=== PATIENT | female | born 1990 | race Two or more races ===

== ENCOUNTER → 2016-09-30 | Outpatient (REF) | payer OTHER ==
[~2016-09-30] MED LIST: VICO5TAB16 PO
== END ==
LOC: M SMT 16:55
PROVIDERS: ATTEND Nurse Practitioner Women's Health
DX: R10.9 Unspecified abdominal pain (principal)

== ENCOUNTER → 2016-10-03 | Outpatient (CLI) | payer OTHER ==
--- NOTE | 2016-10-04 05:56 | REP ---
Clinical: Flank pain. History of nephrolithiasis. Comparison: 04/03/2016. Findings: Lung bases are clear. Visualized heart and pericardium normal. Liver, spleen, pancreas, gallbladder, and bilateral adrenal glands are normal for noncontrast evaluation. Kidneys demonstrate bilateral punctate nephroliths up to 2 mm without perinephric stranding, hydroureteronephrosis, or obstructing ureteral calculi. The enteric system is without obstruction or acute inflammatory process. Pelvis demonstrates collapsed bladder and age-appropriate uterus/adnexa. No pelvic fluid or ascites. No free air. Musculoskeletal structures are intact. Impression: 1. Punctate bilateral nephroliths up to 2 mm without perinephric stranding, hydroureteronephrosis or obstructing ureteral calculus. 2. No further acute intra-abdominal or pelvic pathology appreciated. Signed by Osman Chua MD 10/04/2016 05:48 A
== END ==
LOC: M RAD 16:11
PROVIDERS: ATTEND Nurse Practitioner Women's Health
DX: R10.9 Unspecified abdominal pain (principal); Z87.442 Personal history of urinary calculi